=== PATIENT | female | born 1980 | race Caucasian/White ===

== ENCOUNTER 2020-07-18 13:05 | Inpatient (IN) | payer OTHER ==
[~2020-07-18 13:05] MED LIST: ALBUTEROL2.5 MG/3 M INH; AUGMENTIN 875-1 EACH PO; BACTROBAN CREAM15 GM TOP; DIFLUCAN150 MG PO; DULERA 200 MCG8.8 GM INH; FLONASE 0.05% N16 GM; IPRAT-ALBUT 0.5-3 ML INH; PREDNISONE 10 M10 MG PO; PREDNISONE 20 M20 MG PO; SINGULAIR10 MG PO; VALTREX1000 MG PO; VENTOLIN HFA8 GM INH
[2020-07-18 13:46] LABS: HEMOGLOBIN 12.5 gm/dl (12.3-15.3); RED BLOOD COUNT 4.81 M/UL (4.00-5.10); WHITE BLOOD COUNT 4.6 K/UL (4.5-11.0)
[2020-07-18] MEDS ORDERED: XELJANZ XR22 MG PO (19:47)
[2020-07-18] MEDS ORDERED: PREDNISONE 10 M10 MG PO (19:49)
[2020-07-18] MEDS ORDERED: PLAQUENIL 200200 MG PO (19:51)
[2020-07-18] MEDS ORDERED: KLONOPIN1 MG PO (19:52)
[2020-07-18] MEDS ORDERED: AMBIEN10 MG PO (19:53)
[2020-07-18] MEDS ORDERED: LEUCOVORIN PO (19:55)
[2020-07-18] MEDS ORDERED: FOLIC ACID 1 MG1 MG PO (19:57)
[2020-07-18] MEDS ORDERED: MINIPRESS CAP 11 MG PO (19:58)
[2020-07-18] MEDS ORDERED: LIORESAL TAB 1010 MG PO (19:59)
[2020-07-18] MEDS ORDERED: QUETIAPINE FUMA50 MG PO (20:00)
[2020-07-18] MEDS ORDERED: VIIBRYD20 MG PO (20:02)
[2020-07-18] MEDS ORDERED: HYDROCHLOROTHIA25 MG PO (20:04)
[2020-07-18] MEDS ORDERED: MOBIC15 MG PO (20:05)
[2020-07-18] MEDS ORDERED: COZAAR 25MG TAB25 MG PO (20:06)
[2020-07-18] MEDS ORDERED: GLUCOPHAGE1000 MG PO (20:07)
[2020-07-18] MEDS ORDERED: OMEPRAZOLE40 MG PO (20:08)
[2020-07-18] MEDS ORDERED: FISH OIL 1,0001 EACH PO (20:08)
[2020-07-18] MEDS ORDERED: METHOTREXATE T2.5 MG PO (20:09)
[2020-07-18] MEDS ORDERED: LEVOTHYROXINE25 MC1 PO (20:11)
[2020-07-19 06:02] LABS: HEMOGLOBIN 10.2 gm/dl (12.3-15.3); RED BLOOD COUNT 3.93 M/UL (4.00-5.10); WHITE BLOOD COUNT 2.6 K/UL (4.5-11.0)
[2020-07-19 06:20] LABS: BUN/CREATININE RATIO 27 (0-10)
[2020-07-20 05:50] LABS: HEMOGLOBIN 10.7 gm/dl (12.3-15.3); RED BLOOD COUNT 4.25 M/UL (4.00-5.10); WHITE BLOOD COUNT 2.5 K/UL (4.5-11.0)
[2020-07-20 06:01] LABS: BUN/CREATININE RATIO 23 (0-10)
[2020-07-21 05:05] LABS: HEMOGLOBIN 10.8 gm/dl (12.3-15.3); RED BLOOD COUNT 4.24 M/UL (4.00-5.10)
[2020-07-21 06:02] LABS: BUN/CREATININE RATIO 19 (0-10)
[2020-07-22 07:30] LABS: RED BLOOD COUNT 4.36 M/UL (4.00-5.10)
[2020-07-22 07:34] LABS: WHITE BLOOD COUNT 4.6 K/UL (4.5-11.0)
[2020-07-22 08:05] LABS: BUN/CREATININE RATIO 20 (0-10)
[2020-07-23 03:17] LABS: HEMOGLOBIN 10.4 gm/dl (12.3-15.3); RED BLOOD COUNT 4.09 M/UL (4.00-5.10)
[2020-07-23 03:24] LABS: WHITE BLOOD COUNT 2.9 K/UL (4.5-11.0)
[2020-07-23 03:50] LABS: BUN/CREATININE RATIO 32 (0-10)
[2020-07-24 06:36] LABS: HEMOGLOBIN 10.4 gm/dl (12.3-15.3); RED BLOOD COUNT 4.03 M/UL (4.00-5.10)
[2020-07-24 06:37] LABS: WHITE BLOOD COUNT 6.9 K/UL (4.5-11.0)
[2020-07-24 06:48] LABS: BUN/CREATININE RATIO 33 (0-10)
[2020-07-25 05:11] LABS: HEMOGLOBIN 10.9 gm/dl (12.3-15.3); RED BLOOD COUNT 4.28 M/UL (4.00-5.10)
[2020-07-25 05:12] LABS: WHITE BLOOD COUNT 10.9 K/UL (4.5-11.0)
[2020-07-25 05:29] LABS: BUN/CREATININE RATIO 40 (0-10)
[2020-07-26 05:19] LABS: HEMOGLOBIN 10.4 gm/dl (12.3-15.3); RED BLOOD COUNT 4.15 M/UL (4.00-5.10)
[2020-07-26 05:23] LABS: WHITE BLOOD COUNT 7.6 K/UL (4.5-11.0)
[2020-07-26 05:29] LABS: BUN/CREATININE RATIO 52 (0-10)
[2020-07-27 06:41] LABS: HEMOGLOBIN 9.9 gm/dl (12.3-15.3); RED BLOOD COUNT 3.84 M/UL (4.00-5.10)
[2020-07-27 06:44] LABS: WHITE BLOOD COUNT 3.7 K/UL (4.5-11.0)
[2020-07-27 07:07] LABS: BUN/CREATININE RATIO 65 (0-10)
--- NOTE | 2020-07-27 13:06 | NUR ---
07/27/20- CALLED DIVYA HERNÁNDEZ TO OBTAIN TRANSFER CONSENT TO [facility]. 2ND NURSE VERIFIED TELEPHONE CONSENT.
--- NOTE | 2020-07-27 16:08 | NUR ---
07/27/20 1200 [facility] CALLED TO ARRANGE TRANSPORT. DECLINED DUE TO WEATHER. 07/27/20 1207 [facility] CALLED TO ARRANGE GROUND TRANSPORT. AGREED TO TRANSPORT PT. CURRENT AMBULANCE IS ON RUN AND WILL COME AFTER. SAID THAT THEY WILL REQUIRE AN RN TO RIDE FOR TRANSPORT DUE TO DRIPS INFUSING. 07/27/20 1230 [facility] CALLED TO ARRANGE TRANSPORT. DECLINED DUE TO WEATHER. 07/27/20 1440 CALLED [facility] TO INQUIRE ON ETA FOR TRANSPORT TO [place]. 07/27/20 1615 [facility] ARRIVED FOR TRANSPORT. 07/27/20 1627 [facility] CONTACTED AGAIN ABOUT POSSIBLE AIR TRANSPORT BY [facility]. INSTRUCTED BY HOUSE TO HOLD OFF ON GROUND TRANSPORT FOR POSSIBLE AIR TRANSPORT.
--- NOTE | 2020-07-27 19:08 | NUR ---
07/27/20 1700 PT TRANSFER DELAYED DUE TO THE POSSIBLITY OF FLIGHT. [facility] IS ON STANDBY. AWAITING FOR [facility] TO CALL BACK FOR POSSIBLE FLIGHT TRANSFER. 07/27/20 1737 NOTIFIED OF DELAY. [facility]I IS GOING TO RECHECK WEATHER AT 8PM FOR POSSIBLE TRANSFER BY FLIGHT. OK WITH WAITING UNTIL 8PM FOR POSSIBLE FLIGHT TRANSFER. IF UNABLE TO FLY AT 8PM, WE WILL ARRANGE GROUND TRANSPORT.
--- NOTE | 2020-07-27 20:27 | NUR ---
SPOKE WITH [facility] REGARDING FLIGHT. [facility]FTSMAN DECLINED R/T WEATHER. SPOKE WITH DR. ROBLES PT CAN ONLY GO BY AIR. WAIT UNTIL TOMORROW AND RECHECK WITH [facility] ABOUT TRANSPORT. SPOKE WITH COTTON CHOPPER, FROM HER UNDERDSTANDING NO ONE IS FLYING TONIGHT. WILL ATTEMPT TO ARRANGE TRANSPORT IN THE AM.
[2020-07-28 04:41] LABS: HEMOGLOBIN 9.5 gm/dl (12.3-15.3); RED BLOOD COUNT 3.76 M/UL (4.00-5.10); WHITE BLOOD COUNT 2.8 K/UL (4.5-11.0)
[2020-07-28 05:16] LABS: BUN/CREATININE RATIO 70 (0-10)
--- NOTE | 2020-07-28 07:57 | NUR ---
07/28/20 0757 CALLED [facility] TO ARRANGE AIR TRANSPORT TO [facility]. DECLINED DUE TO WEATHER.
--- NOTE | 2020-07-28 08:07 | NUR ---
07/28/20 0807 CALLED [facility] TO ARRANGE TRANSPORT TO [facility]. DECLINED DUE TO WEATHER.
--- NOTE | 2020-07-28 08:27 | NUR ---
07/28/20 CALLED [facility] BACK FOR POSSIBLE FIXED WING TRANSPORT. AWAITING CALL BACK TO SEE IF AVAILBLE.
--- NOTE | 2020-07-28 09:25 | NUR ---
07/28/20 Aura SPOKE TO RUY AT [facility] ABOUT PT TRANSFER STATUS. SHE SAID THAT THEY HAVE REACHED OUT TO OTHER FLIGHT COMPANIES AND THAT OUR PT IS 3RD ON THE LIST FOR [facility]. SHE PLANS TO CALL BACK IN [address] ESQUIVEL NOTIFED OF PROGRESS.
--- NOTE | 2020-07-28 13:12 | NUR ---
07/28/20 0950- SPOKE TO [facility] TO TRANSFERING PT. THEY SAID THEY WOULD HAVE TO GIVE HER BED AWAY IF TRANSPORT COULD NOT BE ARRANGED. STILL WAITING TO HEAR FROM [facility] ABOUT TRANSFER STATUS. 0955- CALLED [facility] ABOUT PT TRANSFER STATUS. 0957- CALLED [facility] ABOUT POSSIBLE TRANSFER AND FIXED WING. DECLINED DUE TO WEATHER. THEY ARE GOING TO REACH OUT TO OTHER COMPANIES. 1001- SPOKE TO RUY AT [facility]. [facility]W DECLINED DUE TO WEATHER, [facility] HELPER WILL CHECK WEATHER IN 3 HRS AND THEY WILL CALL BACK. 1004- SPOKE TO DR. FLYNN ABOUT THE POSSIBLITY FOR GROUND TRANSFER. HE WAS OK WITH TRANSPORTING PT BY GROUND AMBULANCE AT THIS POINT. 1010- CALLED HOUSE FOR A NURSE TO RIDE WITH AMBULANCE SERVICE. SHE SAID SHE WOULD REACH OUT TO FLIGHT CREW WELL. 1014- [facility] CALLED AND DECLINED DUE TO WEATHER. 1020- CALLED [facility] ABOUT SETTING UP GROUND TRANSFER. 1025- [facility] CONTACTED ABOUT A FLIGHT NURSE GOING WITH [facility]ANCE [facility]W. 1038- GAVE REPORT TO JOSE ANTONIO FLIGHT NURSE, PLAN FOR AMBULANCE AND FLIGHT CREW TO MEET AT [facility] AT [facility] AT 1100. 1130- [facility] ARRIVED TO TRANSPORT PT. 1230- PT LEFT ICU TO BE LOADED ON AMBULANCE. 1300- PT NOTIFIED THAT PT IN ON WAY TO [place].
== END 2020-07-28 12:31 | disposition short-term general hospital (02) | DRG 207 ==
LOC: ER1 13:05 → CCU 16:31 → CDU 16:31 → CCU 07-19 01:30
PROVIDERS: Internal Medicine; Internal Medicine Pulmonary Disease; Physician Assistant; Preventive Medicine Occupational Medicine; ADMIT Internal Medicine
PROC: 8E0ZXY6 Isolation (ICD-10-PCS; principal; 2020-07-18)
PROC: XW033E5 Introduction of Remdesivir Anti-infective into Peripheral Vein, Percutaneous Approach, New Technology Group 5 (ICD-10-PCS; 2020-07-18)
PROC: 5A09457 Assistance with Respiratory Ventilation, 24-96 Consecutive Hours, Continuous Positive Airway Pressure (ICD-10-PCS; 2020-07-18)
PROC: XW13325 Transfusion of Convalescent Plasma (Nonautologous) into Peripheral Vein, Percutaneous Approach, New Technology Group 5 (ICD-10-PCS; 2020-07-19)
PROC: 0BH17EZ Insertion of Endotracheal Airway into Trachea, Via Natural or Artificial Opening (ICD-10-PCS; 2020-07-20)
PROC: 5A1955Z Respiratory Ventilation, Greater than 96 Consecutive Hours (ICD-10-PCS; 2020-07-22)
PROC: 3E0G76Z Introduction of Nutritional Substance into Upper GI, Via Natural or Artificial Opening (ICD-10-PCS; 2020-07-22)
PROC: 03HY32Z Insertion of Monitoring Device into Upper Artery, Percutaneous Approach (ICD-10-PCS; 2020-07-25)
PROC: 4A133B1 Monitoring of Arterial Pressure, Peripheral, Percutaneous Approach (ICD-10-PCS; 2020-07-25)
PROC: 4A133J1 Monitoring of Arterial Pulse, Peripheral, Percutaneous Approach (ICD-10-PCS; 2020-07-25)
PROC: 02HV33Z Insertion of Infusion Device into Superior Vena Cava, Percutaneous Approach (ICD-10-PCS; 2020-07-25)
PROC: B548ZZA Ultrasonography of Superior Vena Cava, Guidance (ICD-10-PCS; 2020-07-25)
DX: U07.1 COVID-19 (principal); J12.82 Pneumonia due to coronavirus disease 2019; A41.89 Other specified sepsis; R65.21 Severe sepsis with septic shock; J80 Acute respiratory distress syndrome; Z68.44 Body mass index [BMI] 60.0-69.9, adult; E11.9 Type 2 diabetes mellitus without complications; M06.9 Rheumatoid arthritis, unspecified; J45.909 Unspecified asthma, uncomplicated; Z90.49 Acquired absence of other specified parts of digestive tract; Z90.710 Acquired absence of both cervix and uterus; Z79.52 Long term (current) use of systemic steroids; Z79.899 Other long term (current) drug therapy; G47.33 Obstructive sleep apnea (adult) (pediatric); E66.01 Morbid (severe) obesity due to excess calories; F32.9 Major depressive disorder, single episode, unspecified; F41.9 Anxiety disorder, unspecified
CPT/HCPCS: 31500; 36415; 36600; 71045; 80053; 81001; 82550; 82553; 82728; 82803; 82962; 83605; 83615; 83690; 83735; 83874; 83880; 84100; 84484; 85025; 85027; 85379; 85384; 85610; 85652; 86140; 86900; 86901; 86927; 87077; 87086; 87186; 94002; 94003; 94640; 94660; 94664; 94760; 96365; 96366; 96367; 96372; 96375; 99285; C1751; J0456; J0696; J1100; J1120; J1205; J1650; J1940; J2185; J2250; J2270; J2405; J2704; J2930; J3010; J7030; J7040; P9047; U0002